=== PATIENT | female | born 1955 | race Caucasian/White ===

== ENCOUNTER 2020-01-05 06:34 | Emergency (ER) | payer MEDICAID ==
[~2020-01-05] VITALS: Ht 172.7 cm; Wt 90.9 kg
[~2020-01-05 06:34] MED LIST: ALBUTEROL SUL0.083 % IN; BUMETANIDE1 MG PO; CEPHALEXIN500 MG PO; CLOTRIM/BET1 EX; CLOTRIM/BETA EX; CLOTRIMAZOLE13 EX; DOXYCYCL HYC100 MG PO; DUONEB IN; ELIQUIS5 MG PO; GABAPENTIN100 MG PO; GLYBURIDE5 MG PO; LEVEMIR1000 UNITS SC; LISINOPRIL10 MG PO; LOPRESSOR 550 MG/TAB PO; Levaquin PO; METFORMIN500 MG PO; METOCLOPRAM5 MG PO; MUPIROCIN2 % EX; NAPROXEN375 MG PO; NITROGLYCER0.2 MG/HR TD; NOVOLOG100 IU/1 M SC; NYSTATIN100000 M1 PO; PRILOSEC20 MG/CAP PO; SORINE80 MG PO; SPIRONOLACTONE50 MG PO; SYNTHROID100 MCG PO; SYNTHROID125 MCG PO; SYNTHROID150 MCG PO
[2020-01-05] MEDS ORDERED: VITAMIN D5000 UNI1 PO (07:19)
[2020-01-05] MEDS ORDERED: AMLOD/BENAZP1 CA3 PO (07:20)
[2020-01-05] MEDS ORDERED: FUROSEMIDE20 MG PO (07:21)
[2020-01-05] MEDS ORDERED: GLIPIZIDE ER5 MG PO (07:21)
[2020-01-05] MEDS ORDERED: FENOFIBRATE145 MG PO (07:22)
[2020-01-05] MEDS ORDERED: METFORMIN HCL500 M2 PO (07:23)
[2020-01-05] MEDS ORDERED: B121000 MC1 PO (07:24)
[2020-01-05] MEDS ORDERED: FERROUS SULF325 M2 PO (07:24)
[2020-01-05] MEDS ORDERED: BYDUREON2 MG SC (07:25)
[2020-01-05] MEDS ORDERED: OZEMPIC2 MG/1.5 M SC (07:26)
[2020-01-05] MEDS ORDERED: VITAMIN A PO (07:27)
[2020-01-05] MEDS ORDERED: CENTANY21 EX (07:29)
[2020-01-05] MEDS ORDERED: PROAIR HFA108 MCG/AC PO (07:29)
[2020-01-05] MEDS ORDERED: SYNTHROID125 MCG PO (07:31)
[2020-01-05] MEDS ORDERED: NAPROXEN500 MG PO (07:56)
[2020-01-05 08:00] VITALS: BP 170/86
== END 2020-01-05 08:00 | disposition home or self-care (01) ==
LOC: ED 06:34
DX: M17.11 Unilateral primary osteoarthritis, right knee (principal); E11.9 Type 2 diabetes mellitus without complications; I48.91 Unspecified atrial fibrillation; E03.9 Hypothyroidism, unspecified; I11.0 Hypertensive heart disease with heart failure; I50.9 Heart failure, unspecified; Z86.718 Personal history of other venous thrombosis and embolism; Z79.4 Long term (current) use of insulin

== ENCOUNTER 2021-03-19 11:53 | Emergency (ER) | payer MEDICAID ==
[~2021-03-19] VITALS: Ht 172.7 cm; Wt 99.1 kg
[~2021-03-19 11:53] MED LIST changes: +AMLOD/BENAZP1 CA3 PO; +B121000 MC1 PO; +BYDUREON2 MG SC; +CENTANY21 EX; +FENOFIBRATE145 MG PO; +FERROUS SULF325 M2 PO; +FUROSEMIDE20 MG PO; +GLIPIZIDE ER5 MG PO; +METFORMIN HCL500 M2 PO; +NAPROXEN500 MG PO; +OZEMPIC2 MG/1.5 M SC; +PROAIR HFA108 MCG/AC PO; +VITAMIN A PO; +VITAMIN D5000 UNI1 PO
[2021-03-19 13:08] LABS: HEMATOCRIT 43.4 % (37.0-47.0); HEMOGLOBIN 13.6 g/dl (12.0-16.0); IMMATURE GRANULOCYTES 0.6 % (0.0-5.0); MEAN CELL VOLUME 81.6 fL CALC (80.0-100.0); MEAN CORPUSCULAR HGB 25.6 pG CALC (26.0-32.0); MEAN CORPUSCULAR HGB CONC 31.3 g/dL CAL (32.0-36.0); NEUT# 5.4 thou/uL (2.00-7.15); RED BLOOD COUNT 5.32 mill/uL (4.20-5.60); RED CELL DISTRI WIDTH 14.2 % (11.5-15.5)
[2021-03-19 13:26] LABS: ALBUMIN 4.4 g/dL (3.2-5.0); ALKALINE PHOSPHATASE 115 u/l (38-126); ANION GAP 14 (6-22 (CALC)); BILIRUBIN, TOTAL 0.5 mg/dL (0.0-1.4); BUN 19 mg/dL (8-23); BUN/CREATININE RATIO 32 (12-20 (CALC)); CARBON DIOXIDE 27 mmol/l (22-30); CHLORIDE 97 mmol/l (95-108); CREATININE 0.6 mg/dL (0.5-1.0); GFR > 60 ML/MIN (>=60 (CALC)); GFR FOR AFR.AMER. > 60 ML/MIN (>=60 (CALC)); SGOT/AST 30 u/l (9-36); SODIUM 133 mmol/l (137-146); TOTAL PROTEIN 8.4 g/dL (6.3-8.2)
[2021-03-19 13:28] LABS: POTASSIUM 4.9 mmol/l (3.5-5.1)
[2021-03-19] MEDS ORDERED: TOUJEO MAX300 UNIT/M (13:57)
[2021-03-19 17:10] VITALS: BP 156/87
== END 2021-03-19 17:10 | disposition short-term general hospital (02) ==
LOC: ED 11:53
PROVIDERS: Family Medicine
DX: S72.121A Displaced fracture of lesser trochanter of right femur, initial encounter for closed fracture (principal); S72.001A Fracture of unspecified part of neck of right femur, initial encounter for closed fracture; I11.0 Hypertensive heart disease with heart failure; I50.9 Heart failure, unspecified; E11.9 Type 2 diabetes mellitus without complications; I48.91 Unspecified atrial fibrillation; E03.9 Hypothyroidism, unspecified; W17.2XXA Fall into hole, initial encounter; Y92.007 Garden or yard of unspecified non-institutional (private) residence as the place of occurrence of the external cause; Z86.718 Personal history of other venous thrombosis and embolism; Z79.84 Long term (current) use of oral hypoglycemic drugs; Z79.4 Long term (current) use of insulin

== ENCOUNTER 2021-08-23 09:01 | Emergency (ER) | payer MEDICAID ==
[~2021-08-23] VITALS: Ht 172.7 cm; Wt 93.0 kg
[2021-08-23] VITALS (14 sets, daily range): BP systolic 109–144; BP diastolic 64–116
[~2021-08-23 09:01] MED LIST changes: +TOUJEO MAX300 UNIT/M
[2021-08-23 10:01] LABS: ALBUMIN 4.6 g/dL (3.2-5.0); ALKALINE PHOSPHATASE 86 u/l (38-126); BILIRUBIN, TOTAL 0.3 mg/dL (0.0-1.4); BUN 10 mg/dL (8-23); BUN/CREATININE RATIO 16 (12-20 (CALC)); CARBON DIOXIDE 29 mmol/l (22-30); CHLORIDE 104 mmol/l (95-108); CREATININE 0.7 mg/dL (0.5-1.0); GFR FOR AFR.AMER. > 60 ML/MIN (>=60 (CALC)); GFR OTHER RACES > 60 ML/MIN (>=60 (CALC)); HEMATOCRIT 44.8 % (37.0-47.0); HEMOGLOBIN 13.8 g/dl (12.0-16.0); IMMATURE GRANULOCYTES 0.2 % (0.0-5.0); MEAN CELL VOLUME 79.2 fL CALC (80.0-100.0); MEAN CORPUSCULAR HGB 24.4 pG CALC (26.0-32.0); MEAN CORPUSCULAR HGB CONC 30.8 g/dL CAL (32.0-36.0); NEUT# 3.96 thou/uL (2.00-7.15); RED BLOOD COUNT 5.66 mill/uL (4.20-5.60); RED CELL DISTRI WIDTH 15.5 % (11.5-15.5); SGOT/AST 23 u/l (9-36); TOTAL PROTEIN 8.4 g/dL (6.3-8.2)
[2021-08-23 10:07] LABS: ANION GAP 11 (6-22 (CALC)); POTASSIUM 3.7 mmol/l (3.5-5.1); SODIUM 140 mmol/l (137-146)
[2021-08-23 11:34] LABS: URINE BILIRUBIN - DIPSTICK NEGATIVE (NEGATIVE); URINE BLOOD DIPSTICK TRACE-INTACT (NEGATIVE); URINE COLOR YELLOW; URINE GLUCOSE - DIPSTICK NEGATIVE (NEGATIVE); URINE KETONE NEGATIVE (NEGATIVE); URINE LEUK ESTERASE TRACE (NEGATIVE); URINE PH 5.5 (4.5-8.0); URINE PROTEIN - DIPSTICK NEGATIVE (NEG-TRACE); URINE SPECIFIC GRAVITY <=1.005; URINE UROBILINOGEN - DIPSTICK 0.2 E.U./dL (0.2)
[2021-08-23 11:37] LABS: URINE NITRITE - DIPSTICK NEGATIVE (Negative)
== END 2021-08-23 12:59 | disposition short-term general hospital (02) ==
LOC: ED 09:01 → ED-I 10:45 → ED 12:59
PROVIDERS: Family Medicine
DX: I48.91 Unspecified atrial fibrillation (principal); J18.9 Pneumonia, unspecified organism; I11.0 Hypertensive heart disease with heart failure; I50.9 Heart failure, unspecified; E11.9 Type 2 diabetes mellitus without complications; E03.9 Hypothyroidism, unspecified; Z86.718 Personal history of other venous thrombosis and embolism; Z79.01 Long term (current) use of anticoagulants; Z79.84 Long term (current) use of oral hypoglycemic drugs; Z79.4 Long term (current) use of insulin; Z20.822 Contact with and (suspected) exposure to COVID-19

== ENCOUNTER 2021-12-26 11:28 | Observation (INO) | payer MEDICAID ==
[2021-12-26] VITALS (13 sets, daily range): BP systolic 142–177; BP diastolic 76–124
[~2021-12-26] VITALS: Ht 172.7 cm; Wt 112.0 kg
[~2021-12-26 11:28] MED LIST changes: +BYDUREON SC; -BYDUREON2 MG SC
--- NOTE | 2021-12-26 11:30 | NUR ---
PT TO ROOM VIA WC
[2021-12-26 11:46] LABS: HEMATOCRIT 40.1 % (37.0-47.0); HEMOGLOBIN 12.5 g/dl (12.0-16.0); IMMATURE GRANULOCYTES 0.1 % (0.0-5.0); MEAN CORPUSCULAR HGB CONC 31.2 g/dL CAL (32.0-36.0); NEUT# 5.42 thou/uL (2.00-7.15); RED BLOOD COUNT 5.21 mill/uL (4.20-5.60); RED CELL DISTRI WIDTH 14.9 % (11.5-15.5)
[2021-12-26 12:01] LABS: ALBUMIN 4.2 g/dL (3.2-5.0); ALKALINE PHOSPHATASE 73 u/l (38-126); ANION GAP 13 (6-22 (CALC)); BILIRUBIN, TOTAL 0.5 mg/dL (0.0-1.4); BUN 11 mg/dL (8-23); BUN/CREATININE RATIO 18 (12-20 (CALC)); CARBON DIOXIDE 27 mmol/l (22-30); CHLORIDE 100 mmol/l (95-108); CREATININE 0.6 mg/dL (0.5-1.0); GFR FOR AFR.AMER. > 60 ML/MIN (>=60 (CALC)); GFR OTHER RACES > 60 ML/MIN (>=60 (CALC)); POTASSIUM 4.1 mmol/l (3.5-5.1); SGOT/AST 24 u/l (9-36); SODIUM 136 mmol/l (137-146); TOTAL PROTEIN 7.7 g/dL (6.3-8.2)
[2021-12-26] MEDS ORDERED: ALBUTEROL SUL0.083 % IN (12:21)
[2021-12-26] MEDS ORDERED: GLUCAGON1 MG IJ (12:23)
[2021-12-26] MEDS ORDERED: VITAMIN D35000 UNI1 PO (12:24)
--- NOTE | 2021-12-26 12:25 | NUR ---
MED REC COMPLETED WITH LIST PROVIDED BY PATIENT, IN NO ACUTE STRESS AT THIS TIME. WAITING ON RESULTS
[2021-12-26] MEDS ORDERED: NORVASC PO (12:26)
[2021-12-26] MEDS ORDERED: CALCIUM 601 PO (12:33)
[2021-12-26] MEDS ORDERED: ISOSORB MONO30 MG PO (12:35)
[2021-12-26] MEDS ORDERED: CARDIZEM CD120 MG PO (12:36)
--- NOTE | 2021-12-26 13:10 | NUR ---
PATIENT RESTING ON STRETCHER, WAITING ON RESULTS AND NEW ORDERS
--- NOTE | 2021-12-26 13:30 | NUR ---
PATIENT AMBULATING AROUND IN ROOM AT THIS TIME. BP TO BE RECHECKED
--- NOTE | 2021-12-26 14:10 | NUR ---
Admission Note Report Given to: SETH Transported by: X Wheelchair Stretcher Transported with: X Nurse Transporter X Patent IV O2 X Security Guards Dispatcher Location: ICU X MS2
--- NOTE | 2021-12-26 15:30 | NUR ---
RECIEVED REPORT. PT SITTING UP IN CHAIR. A/OX3. RESPIRATIONS EVEN AND UNLABORED ON ROOM AIR. LUNG SOUNDS CLEAR. HEART RHYTHM IRREGULAR WITH TELE IN PLACE, AFIHB PER ER MONTORING. BOWEL SOUNDS. #20G RAC PATENT. WOUNDS NOTED TO BLE, DRESSING CHANGED AT THIS TIME. UNABLE TO OBTAIN PHOTOS DUE TO CAMERA.PT STATES SHE WAS DOIGN HOME WOUND CARE. FOUL ODOR AND DRAINAGE NOTED, CULTURE COLLECTED. 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 ALLERGIES NOTED, BANDS APPLIED. PT ORIENTED TO ROOM AND CALL LIGHT SYSTEM. PT DENIES OF ANY ADDITIONAL NEEDS AT THSI TIME. ALL SAFTEY PRECAUTIONS ARE IN PLACE WITH CALL LIGHT IN REACH.
--- NOTE | 2021-12-26 19:15 | NUR ---
REPORT GIVEN BY AMANUEL VAUGHAN. PATIENT SITTING UP IN THE RECLINER. RESP EVEN AND UNLABORED. FALL AND SAFTEY PRECAUTIONS IN PLACE. WOUNDS PRESENT BLE, DRESSING IN PLACE. IV SALINE LOCKED. PLAN OF CARE DISCUSSED. PATIENT INFORMED TO CALL WITH ANY QUESTIONS OR CONCERNS.
--- NOTE | 2021-12-26 21:56 | NUR ---
NEW IV STARTED PER PATIENT REQUEST. 20 L-HAND STARTED AND 20 RAC REMOVED.
--- NOTE | 2021-12-26 22:19 | NUR ---
UPDATED MED REC PER MD REQUEST.
--- NOTE | 2021-12-26 23:52 | NUR ---
PATIENT SITTING IN RECLINER WATCHING TV. RESP EVEN AND UNLABORED. NO S/S OF DISTRESS NOTED.
[2021-12-27 00:06] VITALS: BP 160/105
[2021-12-27 03:58] VITALS: BP 151/95
[2021-12-27 06:39] LABS: HEMATOCRIT 42.1 % (37.0-47.0); HEMOGLOBIN 13.1 g/dl (12.0-16.0); MEAN CELL VOLUME 77.5 fL CALC (80.0-100.0); MEAN CORPUSCULAR HGB 24.1 pG CALC (26.0-32.0); MEAN CORPUSCULAR HGB CONC 31.1 g/dL CAL (32.0-36.0); RED BLOOD COUNT 5.43 mill/uL (4.20-5.60); RED CELL DISTRI WIDTH 14.9 % (11.5-15.5)
[2021-12-27 06:57] LABS: ANION GAP 11 (6-22 (CALC)); BUN 11 mg/dL (8-23); BUN/CREATININE RATIO 19 (12-20 (CALC)); CARBON DIOXIDE 28 mmol/l (22-30); CHLORIDE 104 mmol/l (95-108); CREATININE 0.6 mg/dL (0.5-1.0); GFR FOR AFR.AMER. > 60 ML/MIN (>=60 (CALC)); GFR OTHER RACES > 60 ML/MIN (>=60 (CALC)); POTASSIUM 4.7 mmol/l (3.5-5.1); SODIUM 138 mmol/l (137-146)
[2021-12-27 07:10] VITALS: BP 156/95
--- NOTE | 2021-12-27 08:00 | NUR ---
RC'D REPORT FROM NIGHTSHIFT, PT EATING BREAKFAST, PT DENIES ANY PAIN/CHEST PAIN/SOB, PT IS NOT IN DISTRESS, PT SITTING IN RECLINER, WILL CONTINUE TO MONITOR.
--- NOTE | 2021-12-27 12:00 | NUR ---
PT IS ON THE PHONE, DOES NOT SEEM TO BE IN DITRESS, PT DENIES ANY COMPLAINT, PT IN BEDSIDE CHAIR, WILL CONTINUE TO MONITOR.
[2021-12-27 13:09] LABS: CALCULATED LDLCHOLESTEROL 120 mg/dL (62-129 (CALC)); HDL CHOLESTEROL 31 mg/dL (>=40); MAGNESIUM 1.8 mg/dL (1.6-2.3); TOTAL CHOLESTEROL 169 mg/dl (0-199); TOTAL TRIGLYCERIDES 91 mg/dl (30-149); VLDL CHOLESTROL 18 mg/dl (1-41 (CALC))
[2021-12-27 15:14] VITALS: BP 143/99
--- NOTE | 2021-12-27 16:07 | NUR ---
PT WATCHING TV AND HAPPILY CONVERSING WITH STAFF, PT DENIES ANY COMPLAINTS, WILL CONTINUE TO MONITOR
[2021-12-27 19:23] VITALS: BP 133/65
--- NOTE | 2021-12-27 19:57 | NUR ---
Patient resting in bed. No complaints at this time. Call light within reach.
[2021-12-27 23:35] VITALS: BP 109/48
--- NOTE | 2021-12-28 01:01 | NUR ---
Patient sleepign in bed. Patient was given meds and assessed.
--- NOTE | 2021-12-28 02:17 | NUR ---
Patient in bed sleeping. No complaints.
--- NOTE | 2021-12-28 03:59 | NUR ---
Patient in bed resting comfortably. No complaints. No signs of distress.
[2021-12-28 04:34] VITALS: BP 159/59
--- NOTE | 2021-12-28 06:20 | NUR ---
Patient stated that she is allergic to Levothroxine and that she provided us with her owm synthroid. After checking the med room and the patient's geena i was unable to find the medication. Patient stated that the previous nurse provided her with the medication but i was unable locate the medication.
[2021-12-28 07:05] VITALS: BP 159/86
--- NOTE | 2021-12-28 08:53 | NUR ---
PT HR BETWEEN 120S-160S. PT MEDICATED WITH MORNING MEDICATIONS. RANDELL ASSISTANT GM OF CONTENT & DELIVERY AT BEDSIDE. NOT SUSTAINING WILL CONTINUE TO MONITOR AT THIS TIME, NO NEW ORDERS.
--- NOTE | 2021-12-28 09:51 | NUR ---
HR NOW 90S-120S AFIB. NO NEW ORDERS WILL CONTINUE TO MONITOR.
[2021-12-28 10:54] VITALS: BP 147/87
--- NOTE | 2021-12-28 10:54 | NUR ---
NOTIFIED RANDELL LINE O SCRIBE OPERATOR OF PT HR BACK UP 130S-160S. CURRENT BP 147/87. PT SITTING UP IN CHAIR. NO APPARENT DISTRESS NOTED. ORDERS RECEIVED. WILL MEDICATE WHEN PROFILED AND CONTINUE TO MONITOR.
[2021-12-28 11:18] VITALS: BP 137/106
--- NOTE | 2021-12-28 11:32 | NUR ---
PHYSICIAN AT BEDSIDE.
--- NOTE | 2021-12-28 13:27 | NUR ---
PHYSICIAN BACK AT BEDSIDE. VERBAL ORDER TO ADMINISTER 1500 AMIODARONE 200MG PO NOW FOR HR 130S-160S. NO APPARENT DISTRESS NOTED. PT SITTING UP IN CHAIR. CALL LIGHT WITHIN REACH. WILL CONTINUE TO MONITOR.
--- NOTE | 2021-12-28 17:04 | NUR ---
PT SITTING UP IN CHAIR NO APPARENT DISTRESS NOTED. HR NOW 90S-110, PT REMAINS IN AFIB. NO CURRENT WANTS OR NEEDS. CALL LIGHT WITHIN REACH. WILL CONTINUE TO MONITOR.
[2021-12-28 19:31] VITALS: BP 125/67
--- NOTE | 2021-12-28 19:43 | NUR ---
Patient resting comfortably in recliner with no signs of distress. Patient talkative and watching tv.
[2021-12-29 00:10] VITALS: BP 152/80
--- NOTE | 2021-12-29 02:14 | NUR ---
Patient resting in recliner comfortably. No signs of distress. Vitals are stable.
[2021-12-29 04:29] VITALS: BP 133/75
[2021-12-29 05:26] LABS: HEMATOCRIT 40.4 % (37.0-47.0); HEMOGLOBIN 12.5 g/dl (12.0-16.0); MEAN CELL VOLUME 77.8 fL CALC (80.0-100.0); MEAN CORPUSCULAR HGB 24.1 pG CALC (26.0-32.0); MEAN CORPUSCULAR HGB CONC 30.9 g/dL CAL (32.0-36.0); RED BLOOD COUNT 5.19 mill/uL (4.20-5.60); RED CELL DISTRI WIDTH 14.8 % (11.5-15.5)
[2021-12-29 05:45] LABS: ANION GAP 13 (6-22 (CALC)); BUN 14 mg/dL (8-23); BUN/CREATININE RATIO 26 (12-20 (CALC)); CARBON DIOXIDE 28 mmol/l (22-30); CHLORIDE 102 mmol/l (95-108); CREATININE 0.6 mg/dL (0.5-1.0); GFR FOR AFR.AMER. > 60 ML/MIN (>=60 (CALC)); GFR OTHER RACES > 60 ML/MIN (>=60 (CALC)); MAGNESIUM 1.8 mg/dL (1.6-2.3); POTASSIUM 4.4 mmol/l (3.5-5.1); SODIUM 138 mmol/l (137-146)
[2021-12-29 06:50] VITALS: BP 153/81
--- NOTE | 2021-12-29 08:00 | NUR ---
PT UP IN BED TALKING ON THE PHONE, PT IN NO DISTRESS, WILL CONTINUE TO MONITOR
[2021-12-29 10:07] VITALS: BP 138/76
[2021-12-29] MEDS ORDERED: TOPROL XL50 MG PO (10:35)
[2021-12-29] MEDS ORDERED: DOXYCYCLINE100 MG PO (10:38)
[2021-12-29] MEDS ORDERED: CORDARONE/200 MG/TAB PO (10:43)
[2021-12-29 11:46] VITALS: BP 138/76
[2022-01-02] MEDS ORDERED: KURIC21 EX (15:11)
== END 2021-12-29 12:39 | disposition home or self-care (01) ==
LOC: ED 11:28 → ED-I 12:30 → ED 13:31 → MS2 13:32
PROVIDERS: Emergency Medicine; ADMIT Internal Medicine; ATTEND Internal Medicine
DX: I11.0 Hypertensive heart disease with heart failure (principal); I50.9 Heart failure, unspecified; E11.9 Type 2 diabetes mellitus without complications; I48.0 Paroxysmal atrial fibrillation; I89.0 Lymphedema, not elsewhere classified; L97.819 Non-pressure chronic ulcer of other part of right lower leg with unspecified severity; I87.8 Other specified disorders of veins; E66.9 Obesity, unspecified; E89.0 Postprocedural hypothyroidism; B96.4 Proteus (mirabilis) (morganii) as the cause of diseases classified elsewhere; B95.0 Streptococcus, group A, as the cause of diseases classified elsewhere; Z79.01 Long term (current) use of anticoagulants; Z86.718 Personal history of other venous thrombosis and embolism; Z79.4 Long term (current) use of insulin; Z79.84 Long term (current) use of oral hypoglycemic drugs; Z68.38 Body mass index [BMI] 38.0-38.9, adult; Z85.850 Personal history of malignant neoplasm of thyroid; Z87.81 Personal history of (healed) traumatic fracture; Z86.14 Personal history of Methicillin resistant Staphylococcus aureus infection; Z20.822 Contact with and (suspected) exposure to COVID-19
CPT/HCPCS: G0378

== ENCOUNTER 2022-01-11 09:29 | Emergency (ER) | payer MEDICAID ==
[~2022-01-11] VITALS: Ht 172.7 cm; Wt 107.7 kg
[~2022-01-11 09:29] MED LIST changes: +CALCIUM 601 PO; +CARDIZEM CD120 MG PO; +CORDARONE/200 MG/TAB PO; +DOXYCYCLINE100 MG PO; +GLUCAGON1 MG IJ; +ISOSORB MONO30 MG PO; +KURIC21 EX; +NORVASC PO; +TOPROL XL50 MG PO; +VITAMIN D35000 UNI1 PO
[2022-01-11 10:18] VITALS: BP 177/88
[2022-01-11] MEDS ORDERED: LINEZOLID600 MG PO (10:27)
[2022-01-11] MEDS ORDERED: CIPROFLOXACN500 MG PO (10:27)
[2022-01-11 10:28] VITALS: BP 177/88
== END 2022-01-11 10:45 | disposition home or self-care (01) ==
LOC: ED 09:29
DX: E11.622 Type 2 diabetes mellitus with other skin ulcer (principal); L97.919 Non-pressure chronic ulcer of unspecified part of right lower leg with unspecified severity; I11.0 Hypertensive heart disease with heart failure; I50.9 Heart failure, unspecified; I48.91 Unspecified atrial fibrillation; E03.9 Hypothyroidism, unspecified; Z86.718 Personal history of other venous thrombosis and embolism; Z79.84 Long term (current) use of oral hypoglycemic drugs; Z79.4 Long term (current) use of insulin

== ENCOUNTER 2022-01-30 11:41 | Inpatient (IN) | payer MEDICAID ==
[2022-01-30] VITALS (29 sets, daily range): BP systolic 111–181; BP diastolic 61–118
[~2022-01-30] VITALS: Ht 172.7 cm; Wt 115.2 kg
[~2022-01-30 11:41] MED LIST changes: +CIPROFLOXACN500 MG PO; +LINEZOLID600 MG PO
[2022-01-30 11:59] LABS: HEMOGLOBIN 13.1 g/dl (12.0-16.0); IMMATURE GRANULOCYTES 0.2 % (0.0-5.0); MEAN CELL VOLUME 75.9 fL CALC (80.0-100.0); MEAN CORPUSCULAR HGB 23.7 pG CALC (26.0-32.0); MEAN CORPUSCULAR HGB CONC 31.2 g/dL CAL (32.0-36.0); NEUT# 11.28 thou/uL (2.00-7.15); RED BLOOD COUNT 5.53 mill/uL (4.20-5.60); RED CELL DISTRI WIDTH 15.7 % (11.5-15.5)
[2022-01-30 12:20] LABS: ALBUMIN 4.4 g/dL (3.2-5.0); ALKALINE PHOSPHATASE 104 u/l (38-126); ANION GAP 13 (6-22 (CALC)); BILIRUBIN, TOTAL 0.5 mg/dL (0.0-1.4); BUN 9 mg/dL (8-23); BUN/CREATININE RATIO 14 (12-20 (CALC)); CARBON DIOXIDE 28 mmol/l (22-30); CHLORIDE 99 mmol/l (95-108); CREATININE 0.7 mg/dL (0.5-1.0); GFR FOR AFR.AMER. > 60 ML/MIN (>=60 (CALC)); GFR OTHER RACES > 60 ML/MIN (>=60 (CALC)); POTASSIUM 3.9 mmol/l (3.5-5.1); SGOT/AST 24 u/l (9-36); SODIUM 135 mmol/l (137-146); TOTAL PROTEIN 8.6 g/dL (6.3-8.2)
--- NOTE | 2022-01-30 12:30 | NUR ---
PT MEDICATED PER MAR; ADVISED OF POC; MONITORING DEVICES IN PLACE; CALL LIGHT WITHIN REACH
[2022-01-30] MEDS ORDERED: COZAAR100 MG PO (13:27)
--- NOTE | 2022-01-30 14:00 | NUR ---
RC'D PT FROM ED, PT ON RA, AMBULATORY, BILAT LLE AND CELLULITS. RC'D PT ON CARDIZEM DRIP RUNNING @ 10 MG/HR. STARTED NEW IV IN RIGHT FA 22G TO RUN ABX. PT SITTING IN BEDSIDE RECLINER. VSS. A&OX3.
--- NOTE | 2022-01-30 14:00 | NUR ---
PT RESTING ON STRETCHER. A&OX3 IV SITE HEALTHY.
--- NOTE | 2022-01-30 15:30 | NUR ---
PT TO ICU BED 5 VIA STRETCHER ON MONITOR IV SITE HEALTHY. CARDIZEM DRIP INFUSING AFIB 105. PT A&OX3. STABLE. BEDSIDE REPORT PROVIDED.
--- NOTE | 2022-01-30 18:00 | NUR ---
PT SITTING IN BEDSIDE RECLINER, AWAITING DINNER TRAY.
--- NOTE | 2022-01-30 20:00 | NUR ---
PT ALERT AND ORIENTED, SITTING UP IN HER CHAIR. PTS VITAL SIGNS ARE WITHIN NORMAL LIMITS AT THIS TIME. CURRENTLY ON A CARDIZEM DRIP AT 10MG/HR. PT DENIES ANY CHEST PAIN OR SHORTNESS OF BREATHE. BREATHE SOUNDS CLEAR. PT ABLE TO INDEPENDENTLY TRANSFER TO COMMODE THAT IS AT BEDSIDE. PT HAS ALL OF HER PERSONAL BELONGINGS WITHIN REACH AND THE CALL LIGHT.
--- NOTE | 2022-01-30 22:00 | NUR ---
SHIFT REASSESSMENT - DECREASED CARDIZEM FROM 10-5MG/HR. PT VITAL SIGNS ARE WITHIN NORMAL LIMITS. PT DENIES ANY PAIN AT THIS TIME. CALL LIGHT AND PERSONAL BELONGINGS WITHIN REACH.
[2022-01-31] VITALS (27 sets, daily range): BP systolic 92–158; BP diastolic 61–124
--- NOTE | 2022-01-31 | NUR ---
SHIFT REASSESSMENT - PTS CARDIZEM HAS BEEN STOPPED AT THIS TIME. HR WITHIN 80-90'S AND LOOKS TO BE IN A CONTROLLED AFIB.
--- NOTE | 2022-01-31 02:00 | NUR ---
SHIFT REASSESSMENT - NO CHANGE IN PT STATUS AT THIS TIME. PT HAS BEEN UP A FEW TIMES TO USE THE RESTROOM, BUT DENIES ANY NEED FOR ANYTHING. CALL LIGHT WITHIN REACH.
--- NOTE | 2022-01-31 04:00 | NUR ---
SHIFT REASSESSMENT - NO CHANGE IN PTS STATUS AT THIS TIME. VITAL SIGNS ARE WITHIN NORMAL LIMITS. HR CURRENTLY IN CONTROLLED AFIB.
[2022-01-31 06:08] LABS: HEMATOCRIT 40.1 % (37.0-47.0); HEMOGLOBIN 12.5 g/dl (12.0-16.0); MEAN CELL VOLUME 75.7 fL CALC (80.0-100.0); MEAN CORPUSCULAR HGB 23.6 pG CALC (26.0-32.0); MEAN CORPUSCULAR HGB CONC 31.2 g/dL CAL (32.0-36.0); RED BLOOD COUNT 5.3 mill/uL (4.20-5.60); RED CELL DISTRI WIDTH 15.7 % (11.5-15.5)
[2022-01-31 06:32] LABS: ANION GAP 13 (6-22 (CALC)); BUN 11 mg/dL (8-23); BUN/CREATININE RATIO 18 (12-20 (CALC)); CARBON DIOXIDE 26 mmol/l (22-30); CHLORIDE 100 mmol/l (95-108); CREATININE 0.6 mg/dL (0.5-1.0); GFR FOR AFR.AMER. > 60 ML/MIN (>=60 (CALC)); GFR OTHER RACES > 60 ML/MIN (>=60 (CALC)); MAGNESIUM 1.7 mg/dL (1.6-2.3); POTASSIUM 3.9 mmol/l (3.5-5.1); SODIUM 135 mmol/l (137-146)
--- NOTE | 2022-01-31 07:07 | NUR ---
REPORT FROM EPHRAIM PRESCOTT. ASSUMED PT CARE.
--- NOTE | 2022-01-31 07:16 | NUR ---
SHIFT REASSESSMENT - NO CHANGE IN PT STATUS AT THIS TIME. VITAL SIGNS ARE WITIN NORMAL LIMITS. CALL LIGHT AND PERSONAL BELONGINGS WITHIN REACH.
--- NOTE | 2022-01-31 08:30 | NUR ---
DR. WHITLEY AT BEDSIDE.
--- NOTE | 2022-01-31 10:15 | NUR ---
PT SITTING UP IN CHAIR USING PERSONAL CELL PHONE. NO APPARENT DISTRESS NOTED. ENCOURAGE PT TO ELEVATE LEGS WHILE UP IN CHAIR. VSS. CALL LIGHT WITHIN REACH. WILL CONTINUE TO MONITOR.
--- NOTE | 2022-01-31 12:58 | NUR ---
PT SITTING UP IN CHAIR WITH LEGS ELEVATED. PT DENIES ANY CURRENT WANTS OR NEEDS. VSS. CALL LIGHT WITHIN REACH. WILL CONTINUE TO MONITOR.
--- NOTE | 2022-01-31 14:27 | NUR ---
PLACED CALL TO WOUND CARE REGARDING WOUND CARE CONSULT.
--- NOTE | 2022-01-31 15:10 | NUR ---
PT TRANSFERED VIA WHEELCHAIR TO RADIOLOGY DEPARTMENT FOR US.
--- NOTE | 2022-01-31 16:14 | NUR ---
WOUND CARE PHYSICIAN AT BEDSIDE.
--- NOTE | 2022-01-31 17:15 | NUR ---
REPORT RECEIVED. PT STABLE SITTING ON BEDSIDE CHAIR.
--- NOTE | 2022-01-31 20:00 | NUR ---
PT ALERT AND ORIENTED, FOLLOWING COMMANDS. PT DENIES PAIN AT THIS TIME. PT WAS SEEN BY WOUND CARE AND RIGHT LEG CURRENTLY HAS A DRESSING THAT IS CLEAN AND INTACT. PTS HR PERIODICALLY ELEVATED, DISCUSSED EVENING MEDICATIONS SHOULD ASSIST WITH THAT. VITAL SIGNS ARE WITHIN NORMAL LIMITS. CALL LIGHT AND PERSONAL BELONGINGS WITHIN REACH.
--- NOTE | 2022-01-31 22:00 | NUR ---
SHIFT REASSESSMENT - PT HAS BEEN UP OUT OF BED TO ATTEMPT A BOWEL MOVEMENT. PT DID HAVE A VERY SMALL BOWEL MOVEMENT. STATED SHE WOULD ASK FOR A STOOL SOFTENER IF NEEDED. CALL LIGHT WITHIN REACH.
[2022-02-01] VITALS (19 sets, daily range): BP systolic 100–139; BP diastolic 57–91
--- NOTE | 2022-02-01 | NUR ---
SHIFT REASSESSMENT - NO CHANGE IN PTS STATUS AT THIS TIME.
--- NOTE | 2022-02-01 02:00 | NUR ---
SHIFT REASSESSMENT - NO CHANGE IN PT STATUS AT THIS TIME. PT LOOKS TO BE RESTING COMFORTABLY IN THE CHAIR.
[2022-02-01 04:15] LABS: HEMATOCRIT 38.3 % (37.0-47.0); HEMOGLOBIN 11.7 g/dl (12.0-16.0); MEAN CELL VOLUME 76.1 fL CALC (80.0-100.0); MEAN CORPUSCULAR HGB 23.3 pG CALC (26.0-32.0); MEAN CORPUSCULAR HGB CONC 30.5 g/dL CAL (32.0-36.0); RED BLOOD COUNT 5.03 mill/uL (4.20-5.60); RED CELL DISTRI WIDTH 15.8 % (11.5-15.5)
[2022-02-01 04:27] LABS: ANION GAP 13 (6-22 (CALC)); BUN 15 mg/dL (8-23); BUN/CREATININE RATIO 22 (12-20 (CALC)); CARBON DIOXIDE 24 mmol/l (22-30); CHLORIDE 104 mmol/l (95-108); CREATININE 0.7 mg/dL (0.5-1.0); GFR FOR AFR.AMER. > 60 ML/MIN (>=60 (CALC)); GFR OTHER RACES > 60 ML/MIN (>=60 (CALC)); MAGNESIUM 1.9 mg/dL (1.6-2.3); POTASSIUM 3.9 mmol/l (3.5-5.1); SODIUM 137 mmol/l (137-146)
--- NOTE | 2022-02-01 06:00 | NUR ---
SHIFT REASSESSMENT - PT HAD A LOW BLOOD SUGAR YESTURDAY MORNING. GAVE HER A CUP OF CRANBERRY JUICE AT THIS TIME. VITAL SIGNS ARE WITHIN NORMAL LIMITS.
--- NOTE | 2022-02-01 08:00 | NUR ---
PATIENT SITTING IN CHAIR. NO SIGNS AND SYMPTOMS OF DISTRESS.
--- NOTE | 2022-02-01 10:00 | NUR ---
PATIENT SITTING IN CHAIR. NO S/S OF DISTRESS AT THIS TIME.
--- NOTE | 2022-02-01 12:00 | NUR ---
PATIENT SITTING IN CHAIR. NO S/S OF DISTRESS.
--- NOTE | 2022-02-01 14:00 | NUR ---
PATIENT SITTING IN CHAIR. PATIENT DENIES ANY PAIN AT THIS TIME. NO S/S OF DISTRESS.
--- NOTE | 2022-02-01 17:17 | NUR ---
PATIENT TRANSFERRED TO ME FROM ICU VIA WC BY GENIE GUNN. PATIENT HAS TWO IVS AND ARE PATENT AND FLUSH WELL. PT IS A&OX3. ON TELE MONITOR, MONITORED BY ED. PATIENT IS ON ROOM AIR. PT IS ABLE TO MAKE NEEDS KNOWN, DENIES ANY PAIN OR DISCOMFORT AT THIS TIME. PT RESTING ON RECLYNER. CALL LIGHT AND BEDSIDE TABLE WITHIN REACH.
--- NOTE | 2022-02-01 20:50 | NUR ---
RECIEVED REPORT. PT A/OX3 SITTING UP IN RECYLINER. RESPIRATIONS EVEN AND UNLABORED ON ROOM AIR. LUNG SOUNDS CLEAR. HEART RHYTHM IRREGULAR WITH TELE IN PLACE. #22G RFA AND #20G LAC PATENT. RLE DRESSING REMAINS CDI. LLE SCABBED AREA NOTED. DRESSINGS PER WOUND CARE ORDER. BLE RED AND WARM TO TOUCH. PT DENIES OF ANY PAINS.CONTACT PRECAUTIONS IN PLACE. PT ORIENTED TO ROOM AND CALL SYSTEM. ALL SAFTEY PRECAUTIONS ARE IN PLACE WITH CALL LIGHT IN REACH.
[2022-02-02] VITALS: BP 125/61
[2022-02-02 00:09] VITALS: BP 125/61
--- NOTE | 2022-02-02 00:50 | NUR ---
PT RESTING IN RECYLINR WITH EYES CLOSED. RESPIRATIONS EVEN AND UNLABORED ON ROOM AIR. IV SITES NOTED. TELE MONITORING IN PLACE. ALL SAFTEY PRECAUIONS ARE IN PLACE WITH CALL LIGHT IN REACH
--- NOTE | 2022-02-02 03:10 | NUR ---
DRESSING APPLIED TO LEFT ANKLE WITH THERAHONEY PER WOUND CARE ORDERS. DRESSING REMAINS CDI
--- NOTE | 2022-02-02 03:34 | NUR ---
PT RESTING IN CHAIR. RESPIRATIONS EVEN AND UNLABORED ON ROOM AIR. TELE MONITORING IN PLACE. IV SITES PATENT. DRESSING BLE CDI. PT DENIES OF ANY NEEDS. ALL SAFTEY PRECAUTIONS ARE IN PLACE WITH CALL LIGHT IN REACH.
[2022-02-02 04:00] VITALS: BP 119/71
[2022-02-02 06:08] LABS: HEMATOCRIT 35.6 % (37.0-47.0); HEMOGLOBIN 11.2 g/dl (12.0-16.0); MEAN CELL VOLUME 76.6 fL CALC (80.0-100.0); MEAN CORPUSCULAR HGB 24.1 pG CALC (26.0-32.0); MEAN CORPUSCULAR HGB CONC 31.5 g/dL CAL (32.0-36.0); RED BLOOD COUNT 4.65 mill/uL (4.20-5.60); RED CELL DISTRI WIDTH 15.7 % (11.5-15.5)
[2022-02-02 06:24] LABS: ANION GAP 12 (6-22 (CALC)); BUN 14 mg/dL (8-23); BUN/CREATININE RATIO 21 (12-20 (CALC)); CARBON DIOXIDE 26 mmol/l (22-30); CHLORIDE 103 mmol/l (95-108); CREATININE 0.6 mg/dL (0.5-1.0); GFR FOR AFR.AMER. > 60 ML/MIN (>=60 (CALC)); GFR OTHER RACES > 60 ML/MIN (>=60 (CALC)); MAGNESIUM 1.9 mg/dL (1.6-2.3); POTASSIUM 4.1 mmol/l (3.5-5.1); SODIUM 137 mmol/l (137-146)
[2022-02-02 06:43] VITALS: BP 121/85
--- NOTE | 2022-02-02 08:15 | NUR ---
pt awake in recliner; offers no complaints; no apparent distress noted; tele monitor intact; #20 to lac and #22 to rfa saline locked; no redness or edema noted; dressing cdi to left foot; pressure dressing/noel wrap intact to rle; pt call light within reach; will continue to monitor
--- NOTE | 2022-02-02 12:00 | NUR ---
awake sitting in recliner; offers no complaints; tele monitor intact; call light within reach; pt explained the importance of limb elevation, states understanding; will continue to monitor
[2022-02-02] MEDS ORDERED: LINEZOLID600 MG PO (12:11)
[2022-02-02] MEDS ORDERED: SYNTHROID150 MCG PO (12:12)
[2022-02-02 14:39] VITALS: BP 121/85
[2022-02-02 14:42] VITALS: BP 121/85
--- NOTE | 2022-02-02 16:00 | NUR ---
awake in recliner; offers no complaints; iv intact; tele monitor in place; call light within reach; will continue to monitor
--- NOTE | 2022-02-02 18:00 | NUR ---
discharge instructions reviewed in detail; supplies for dressing change to go with pt; HH to set per CM
--- NOTE | 2022-02-02 19:01 | NUR ---
Discharge instructions given. Patient verbalizes understanding of same. Discharged in stable condition via Wheelchair to Home with family. All belongings sent with pt.
== END 2022-02-02 19:01 | disposition home or self-care (01) | DRG 603 ==
LOC: ED 11:41 → ED-I 14:00 → ED 14:42 → ICU 14:43 → MS2 02-01 17:17
PROVIDERS: Family Medicine; ADMIT Internal Medicine; ATTEND Internal Medicine
DX: L03.115 Cellulitis of right lower limb (principal); L97.829 Non-pressure chronic ulcer of other part of left lower leg with unspecified severity; L97.819 Non-pressure chronic ulcer of other part of right lower leg with unspecified severity; I48.91 Unspecified atrial fibrillation; L03.116 Cellulitis of left lower limb; I11.0 Hypertensive heart disease with heart failure; E11.622 Type 2 diabetes mellitus with other skin ulcer; I50.9 Heart failure, unspecified; E78.5 Hyperlipidemia, unspecified; E89.0 Postprocedural hypothyroidism; M19.90 Unspecified osteoarthritis, unspecified site; E66.01 Morbid (severe) obesity due to excess calories; B95.62 Methicillin resistant Staphylococcus aureus infection as the cause of diseases classified elsewhere; Z86.718 Personal history of other venous thrombosis and embolism; Z79.84 Long term (current) use of oral hypoglycemic drugs; Z79.4 Long term (current) use of insulin; Z85.850 Personal history of malignant neoplasm of thyroid; Z88.1 Allergy status to other antibiotic agents; Z86.14 Personal history of Methicillin resistant Staphylococcus aureus infection; Z79.01 Long term (current) use of anticoagulants
CPT/HCPCS: J0692; J2020

== ENCOUNTER 2022-06-26 12:35 | Emergency (ER) | payer MEDICAID ==
[2022-06-26] VITALS (14 sets, daily range): BP systolic 117–164; BP diastolic 75–90
[~2022-06-26] VITALS: Ht 172.7 cm; Wt 109.3 kg
[~2022-06-26 12:35] MED LIST changes: +COZAAR100 MG PO
[2022-06-26 14:05] LABS: BASO% 0.8 % (0-3); EOS% 2.5 % (0-8); HEMATOCRIT 50.5 % (37.0-47.0); HEMOGLOBIN 15.4 g/dl (12.0-16.0); IMMATURE GRANULOCYTES 0.1 % (0.0-5.0); LYMPH% 21.2 % (15-41); MEAN CELL VOLUME 79.8 fL CALC (80.0-100.0); MEAN CORPUSCULAR HGB 24.3 pG CALC (26.0-32.0); MEAN CORPUSCULAR HGB CONC 30.5 g/dL CAL (32.0-36.0); MONO% 5.5 % (2-13); NEUT# 5.33 thou/uL (2.00-7.15); NEUT% 69.9 % (42-76); RED BLOOD COUNT 6.33 mill/uL (4.20-5.60)
[2022-06-26 14:21] LABS: INTERNATIONAL NORMALIZED RATIO 1.1 RATIO (0.7-1.3); PROTHROMBIN TIME 10.8 SECONDS (9.0-12.5)
[2022-06-26 14:24] LABS: ALBUMIN 4.2 g/dL (3.2-5.0); ALKALINE PHOSPHATASE 98 u/l (38-126); ANION GAP 13 (6-22 (CALC)); BILIRUBIN, TOTAL 0.5 mg/dL (0.02-1.3); BUN 14 mg/dL (8-23); BUN/CREATININE RATIO 17 (12-20 (CALC)); CARBON DIOXIDE 27 mmol/l (22-30); CHLORIDE 99 mmol/l (95-108); CREATININE 0.8 mg/dL (0.5-1.0); GFR FOR AFR.AMER. > 60 ML/MIN (>=60 (CALC)); GFR OTHER RACES > 60 ML/MIN (>=60 (CALC)); POTASSIUM 4.2 mmol/l (3.5-5.1); SGOT/AST 30 u/l (9-36); SODIUM 135 mmol/l (137-146); TOTAL PROTEIN 7.6 g/dL (6.3-8.2)
== END 2022-06-26 16:04 | disposition home or self-care (01) ==
LOC: ED 12:35
PROVIDERS: Nurse Practitioner
DX: R04.0 Epistaxis (principal); I10 Essential (primary) hypertension; E11.9 Type 2 diabetes mellitus without complications; E03.9 Hypothyroidism, unspecified; I48.91 Unspecified atrial fibrillation; Z79.84 Long term (current) use of oral hypoglycemic drugs; Z79.4 Long term (current) use of insulin